=== PATIENT | female | born 1935 | race Caucasian/White ===

== ENCOUNTER 2019-02-03 19:53 | Emergency (ER) | payer OTHER ==
[~2019-02-03] VITALS: Ht 162.6 cm; Wt 59.0 kg
[2019-02-03 20:00] VITALS: BP_SYST 102
--- NOTE | 2019-02-03 20:30 | NUR ---
Patient to ER bed 2 to gown for evaluation. Side rails up.
--- NOTE | 2019-02-03 20:45 | NUR ---
PT came to the ED for medical clearance [facility]. The rest of the pts hx is limited due to pt baseline of being non-verbal. Upon observation, pt is resting comfortably in bed, no signs of acute distress. Will cont. to monitor.
--- NOTE | 2019-02-03 21:37 | NUR ---
ER at bedside examining patient.
[2019-02-03 22:03] LABS: BASOPHILS % (AUTO) 0.7 % (0.0-2.0); EOSINOPHILS # (AUTO) 0.1 K/uL (0.0-0.4); EOSINOPHILS % (AUTO) 1.7 % (0.0-4.0); HEMATOCRIT 41.2 % (36-48); HEMOGLOBIN 13.4 g/dL (12.0-16.0); LYMPHOCYTES # (AUTO) 1.1 K/uL (1.0-5.5); LYMPHOCYTES % (AUTO) 14.8 % (20.5-51.5); MEAN CORPUSCULAR HEMOGLOBIN 32 pg (27-31); MEAN CORPUSCULAR HGB CONC 33 % (32-36); MEAN CORPUSCULAR VOLUME 97 fL (79.0-98.0); MONOCYTES # (AUTO) 0.4 K/uL (0.0-1.0); MONOCYTES % (AUTO) 6.1 % (1.7-9.3); NEUTROPHILS # (AUTO) 5.5 K/uL (1.8-7.7); NEUTROPHILS % (AUTO) 76.7 % (40.0-70.0); PLATELET COUNT (AUTO) 201 K/uL (130-430); RED BLOOD CELL COUNT(AUTO) 4.23 MIL/uL (4.2-6.2); RED CELL DISTRIBUTION WIDTH 13.9 % (9.0-15.0); WHITE BLOOD COUNT (AUTO) 7.1 K/uL (4.8-10.8)
[2019-02-03 22:11] LABS: ANION GAP 7 (5-15); CALCIUM 8.7 mg/dL (8.4-11.0); CHLORIDE 111 mmol/L (98-107); CREATININE 0.72 mg/dL (0.55-1.30); GLUCOSE 107 mg/dL (70-99); POTASSIUM 4.2 mmol/L (3.5-5.1); SODIUM SERUM 144 mmol/L (136-145); UREA NITROGEN, BLOOD 33 mg/dL (8-21)
[2019-02-03 22:25] LABS: ALANINE AMINOTRANSFERASE 14 U/L (12-78); ALBUMIN 3.3 g/dL (3.4-4.8); ASPARTATE AMINOTRANSFERASE 13 U/L (10-37); TOTAL BILIRUBIN 0.4 mg/dL (0.0-1.0)
[2019-02-03 22:25] LABS: ACETAMINOPHEN < 1 ug/mL (1-30)
--- NOTE | 2019-02-03 22:30 | NUR ---
Pt resting comfortably in bed, no signs of acute distress. WIll cont. to monitor.
[2019-02-03 23:19] LABS: BILIRUBIN,URINE NEGATIVE (NEGATIVE); BLOOD, URINE NEGATIVE (NEGATIVE); CLARITY/URINE CLEAR (CLEAR); COLOR,URINE YELLOW (YELLOW); GLUCOSE,URINE NEGATIVE (NEGATIVE); KETONES,URINE NEGATIVE (NEGATIVE); LEUKOCYTE ESTERASE ,URINE TRACE (NEGATIVE); NITRITE, URINE POSITIVE (NEGATIVE); PH,URINE 5.5 (5.0-8.0); PROTEIN URINE NEGATIVE (NEGATIVE); UROBILINOGEN,URINE 0.2 (0.2-1.0)
[2019-02-03 23:23] LABS: BACTERIA,URINE MANY /HPF (None Seen); RBC,URINE 0-3 /HPF (0-3)
--- NOTE | 2019-02-04 | NUR ---
Pt resting comfortably in bed, no signs of acute distress. WIll cont. to monitor.
--- NOTE | 2019-02-04 01:00 | NUR ---
Pt resting comfortably in bed, no signs of acute distress. WIll cont. to monitor.
--- NOTE | 2019-02-04 02:01 | NUR ---
Pt resting comfortably in bed, no signs of acute distress. WIll cont. to monitor.
[2019-02-04] MEDS ORDERED: cefTRIAXone 1 GM in D5W 50 ML IV ONE (03:15)
[2019-02-04] MEDS ORDERED: cefTRIAXone 1 GM VIAL ONE (03:30)
--- NOTE | 2019-02-04 03:40 | NUR ---
# 22 gauge angiocath placed to R forearm. Use of asceptic technique. Opsite placed over site. Blood return noted. Blood for lab drawn from site. Flushed with 10 cc of normal saline. No evidence of infiltration noted. Patient tolerated well.
--- NOTE | 2019-02-04 04:13 | NUR ---
Pt started on IV abx per MD order. Tolerated well. Will cont. to monitor.
--- NOTE | 2019-02-04 05:45 | NUR ---
Patient to be transferred to [facility]. Is being transferred due to higher level of care. Receiving facility has accepting physician and available space. ER physician has signed transfer form. Patient or responsible libertarian has agreed to transfer and signed form. Patient belongings inventoried and will be sent with patient. Copy of nursing notes, lab reports, EKG, Physicians Orders and X-rays to be sent with patient. Report called to JAXON Gandhi at receiving facility. Receiving physician is Dr. Gilbert. [facility] has been called for transfer. ETA is now.
[2019-02-04 05:55] VITALS: BP_SYST 105
--- NOTE | 2019-02-04 05:55 | NUR ---
Note paulie in EDM - 02/04/19 at 0609 by [email or web address] PT left via gurney to [facility] with EMS. Pt stable, no signs of acute distress. Will cont. to monitor.
--- NOTE | 2019-02-04 05:55 | NUR ---
PT left via gurney to [facility] with EMS. Pt stable, no signs of acute distress.
== END 2019-02-04 05:55 ==
LOC: SED 19:53
DX: F03.90 Unspecified dementia, unspecified severity, without behavioral disturbance, psychotic disturbance, mood disturbance, and anxiety (principal); N39.0 Urinary tract infection, site not specified; K21.9 Gastro-esophageal reflux disease without esophagitis; I10 Essential (primary) hypertension; F41.9 Anxiety disorder, unspecified; F32.9 Major depressive disorder, single episode, unspecified
CPT/HCPCS: 36415; 80053; 81000; 83605; 85025; 87040; 87081; 87086; 87186; 96365; 99285; G0480; G0481; J0696

== ENCOUNTER 2019-02-04 12:12 | Outpatient (CLI) | payer OTHER ==
[2019-02-04 13:39] LABS: CHOLESTEROL 231 mg/dL (<200); HDL CHOLESTEROL 85 mg/dL (>55); LDL CHOLESTEROL 122 mg/dL (<100); TRIGLYCERIDES 75 mg/dL (30-150)
== END 2019-02-04 20:54 | disposition home or self-care (01) ==
LOC: SLB 12:12
PROVIDERS: ATTEND Psychiatry & Neurology Psychiatry
DX: Z00.00 Encounter for general adult medical examination without abnormal findings (principal)
CPT/HCPCS: 36415; 80061; 83036